=== PATIENT | male | born 1935 | race Caucasian/White ===

== ENCOUNTER → 2016-08-09 | Outpatient (CLI) | payer MEDICARE, BC ==
[~2016-08-09] MED LIST: ALDACTONE25 MG PO; AMARYL4 MG PO; APRESOLINE50 MG PO; ARICEPT10 MG PO; ASPIRIN LO-DOSE81 MG PO; ASPIRIN325 MG PO; BENICAR HCT 401 EAC1 PO; BENTYL10 MG PO; BYSTOLIC10 MG PO; BYSTOLIC20 MG PO; CARAFATE1 GM PO; CPAP INH; FLOMAX0.4 MG PO; FLONASE 50 MCG/16 GM NOSE; HYGROTON25 MG PO; IMDUR60 MG PO; LIDOCAINE15 GM TOP; LOSARTAN-HCTZ1 EAC1 PO; LOTENSIN20 MG PO; LYRICA 75MG CAP75 MG PO; NORVASC5 MG PO; PAXIL20 MG PO; PRAVACHOL80 MG PO; PROTONIX40 MG PO; TOPROL XL100 MG PO; TRADJENTA5 MG PO; VICTOZA 2-0.6 MG/0.1 SUB-Q; VITAMIN B-121000 MCG PO
== END | disposition disaster alternative care site (69) ==
LOC: LHSC 11:14
DX: K21.9 Gastro-esophageal reflux disease without esophagitis (principal); K63.5 Polyp of colon; R10.9 Unspecified abdominal pain; R19.4 Change in bowel habit; K20.9 Esophagitis, unspecified; K29.71 Gastritis, unspecified, with bleeding; K29.81 Duodenitis with bleeding

== ENCOUNTER 2016-11-13 13:52 | Observation (INO) | payer MEDICARE, BC ==
[~2016-11-13] VITALS: Ht 188 cm; Wt 95.0 kg
--- NOTE | ~2016-11-13 | ECHO ---
Transthoracic Echocardiography Report (TTE) Demographics Patient Name JOHN LALA Date of Study 11/15/2016 Patient Number [id number] Visit Number [id number] Date of 1935 Room Number G6230 Accession Number [id number] Gender Male Age 81 year(s) Referring Dk Srivastava Chemical Unit Operator Yahir Mart RVYfn, Physician BOYD Physician Interpreting [place] [employer] Equipment Worker Physician Supervising Ordering Physician French Cotter MD, MD/P Nurse Stress Manager Plant Conclusions Contractility Score Summary Normal Left Ventricular contractility was noted. Summary The estimated left ventricular ejection fraction is 60% with normal internal dimension and WM.Moderate to severe concentric left ventricular hypertroPHY. Mild mitral annular calcification. Mild mitral regurgitation by color Doppler. Procedure Type of Study TTE procedure:2D Echocardiogram, Echo with Contrast. Procedure Date Date: 11/15/2016 Start: 08:12 AM Study Location: Inpatient Portable Technical Quality: Good visualization Indications:CVA. Appropriate Use Criteria: 8 Patient Status: Routine Contrast Medium: Bubble Study. Rhythm: NSR HR: 65 bpm BP: 159/72 mmHg M-Mode/2D Measurements LV Diastolic Dimension: 4.37 cm LV Systolic Dimension: 2.62 cm LV Septum Diastolic: 1.74 cm LV PW Diastolic: 1.52 cm AO Root Dimension: 2.8 cm Cardiac Output: 10.24 l/min AV Cusp Separation: 2.3 cm RV Diastolic Dimension: 3.39 cm LA volume: 59 ml LVOT: 2.6 cm RV Base: 4.2 cm LVOT VTI: 29.7 cm RV Mid: 3.2 cm LV Stroke volume: 157.61 ml TAPSE: 3.05 cm TDI-S': 15.6 cm/s Doppler Measurements AV Peak Velocity: 1.67 m/s MV Peak E-Wave: 1.08 m/s AV Peak Gradient: 11.16 mmHg MV Peak A-Wave: 1.01 m/s AV Mean Gradient: 7 mmHg MV E/A Ratio: 1.07 LVOT Peak Velocity: 1.13 m/s MV P1/2t: 79 msec TR Gradient:21.16 mmHg PV Peak Velocity: 1.03 m/s Estimated RAP:5 mmHg PV Peak Gradient: 4.24 mmHg Estimated RVSP: 26 mmHg Estimated PASP: 26.16 mmHg E' Septal Velocity: 0.06 m/s A' Septal Velocity: 0.09 m/s E' Lateral Velocity: 0.07 m/s A' Lateral Velocity: 0.09 m/s Findings Left Ventricle Moderate to severe concentric left ventricular hypertrophy with normal internal dimension,EF and WM. Diastolic assessment reveals Grade II pseudonormal diastolic function . Right Ventricle Normal right ventricle structure and function. Left Atrium The left atrium is normal. There is no evidence of patent foramen ovale or atrial septal defect by color Doppler. Bubble study was done, there is no evidence for a PFO or ASD. Right Atrium Normal right atrial size. Mitral Valve Mild mitral annular calcification. Mild mitral regurgitation by color Doppler. Aortic Valve The aortic valve is mildly sclerotic. There is trivial aortic regurgitation by color Doppler. Tricuspid Valve Normal tricuspid valve structure and function. Trivial tricuspid regurgitation by color Doppler. Pulmonic Valve Normal pulmonic valve structure and function. Pericardial Effusion No evidence of pericardial effusion. Miscellaneous Visualized portions of the aortic root and ascending aorta appear normal in size. Pleural Effusion No evidence of pleural effusion. Contractility Score LV regional wall motion:(0-Non visualized 1-Normal 2-Hypokinesis 3-Akinesis 4-Dyskinesis 5-Aneurysm) Signature dtt: Ramona Contreras dtd: 11/15/16 0812 Physician Self Edit
--- NOTE | ~2016-11-13 | DS ---
PATIENT'S NAME: JOHN LALA [facility] AGE: 81 Y [address] ROOM: [facility] [place] [place], [place] [address] LOCATION: [facility] ADMIT DATE: 11/13/2016 Discharge Summary DISCHARGE DATE: 11/15/2016 FAMILY PHYSICIAN: Rohith Root MD ATTENDING PHYSICIAN: Deedee Braswell BRIEF HISTORY: This is an 81-year-old white male, who had presented to the emergency room with sudden onset of numbness of his right face, right arm, and right side of his head. It began while sitting at home on the table. He recently was treated for shingles with left forehead postherpetic neuralgia. He was evaluated in the emergency room and found to have what appeared to be a small stroke in the left thalamus, which was felt to be ischemic with minimal symptoms as essentially his symptoms had improved dramatically, and tPA was not offered. Dr. Deedee Braswell did admit the patient under stroke protocol. The patient improved dramatically. Essentially over the first few hours, all the patient's symptoms were gone with the exception of mild right temporoparietal numbness and tingling. No dysarthria. No upper extremity or lower extremity weakness. He was seen by teleradiology. His blood pressure was elevated, and his blood pressure was treated to toward normalization but not to normal. Over the next 24 hours or so, he was evaluated by Physiatry. The tele- radiologist recommended treating blood pressure as well as complete workup of any carotid disease. DISCHARGE MEDICATIONS: He was subsequently discharged to home on: 1. Pravastatin. 2. Pantoprazole. 3. Isordil. 4. Lyrica. 5. Flonase. 6. Glimepiride. 7. Aspirin 325 daily. His other medications were continued as well, and we tried to trend his LDL less than 70. He will continue on his: 1. Bystolic. 2. Vitamin B12. 3. Lidocaine cream for his postherpetic neuralgia. FOLLOWUP: He will follow up with us in 1 week's time or sooner if needed. ROHITH ROOT MD PATIENT'S NAME: JOHN LALA [facility] AGE: 81 Y [address] ROOM: [place] [address] LOCATION: [facility] ADMIT DATE: 11/13/2016 Discharge Summary DISCHARGE DATE: 11/15/2016 FAMILY PHYSICIAN: Rohith Root MD ATTENDING PHYSICIAN: Deedee Braswell/maximiliano /[id number] d: 12/08/16 0345 t: 12/28/16 1702, DISCHARGE SUMMARY
--- NOTE | ~2016-11-13 | ER ---
PATIENT'S NAME: JOHN LALA [facility] AGE: 81 Y [address] ROOM: [address] [place], [place] [address] LOCATION: [facility] ADMIT DATE: 11/13/2016 ER/Outpatient Report DISCHARGE DATE: FAMILY PHYSICIAN: Rohith Root MD ATTENDING PHYSICIAN: Deedee Braswell TIME SEEN: Approximately 1400 hours. HISTORY OF PRESENT ILLNESS: The patient is an 81-year-old male presents with sudden onset of numbness involving the right side of his head, face and right arm. Symptoms began around 11 to 11:30. The patient denied any headache, dizziness or weakness. ALLERGIES: NONE. HOME MEDICATIONS: See copied list which was reviewed. PAST MEDICAL HISTORY: Includes ewp-tqugven-dqkghzsex diabetes, hypertension, renal insufficiency, and BPH. SOCIAL HISTORY: He is a smoker back in the 60s. No alcohol use. REVIEW OF SYSTEMS: GENERAL: No recent febrile illness. He was treated for shingles about a month ago involving the left side of his face and forehead. HEAD AND EENT: No complaints of headache, visual changes or difficulty swallowing. RESPIRATORY: No cough or wheezing. He does use a CPAP at night. CARDIOVASCULAR: Takes treatment for hypertension. He has had no recent chest pain. No heart palpitations or irregularities. GASTROINTESTINAL: No abdominal pain. No weight loss. No change in bowel habits. GENITOURINARY: Does see Dr. Hoyt for his enlarged prostate. He has recently been put on Flomax. NEURO/PSYCH: He had sudden onset of numbness involving his right side of his head, face and right arm. He does state he has some mild gait or balance issues. OBJECTIVE FINDINGS: VITAL SIGNS: Reviewed. His blood pressure about 140/80. PATIENT'S NAME: JOHN LALA [facility] AGE: 81 Y [address] ROOM: [address] [place], [place] [address] LOCATION: [facility] ADMIT DATE: 11/13/2016 ER/Outpatient Report DISCHARGE DATE: FAMILY PHYSICIAN: Rohith Root MD ATTENDING PHYSICIAN: Deedee Braswell GENERAL APPEARANCE: He is white male. He is alert and oriented. HEAD: Normocephalic. EYES: PERRLA. No nystagmus. NOSE: Septum midline. MOUTH: Tongue was midline. Buccal membranes moist. NECK: No jugular venous distention. No bruits heard. LUNGS: Clear peripherally. HEART: Tones distant, but regular. ABDOMEN: Soft, nontender. EXTREMITIES: No pedal edema. No clubbing. NEURO: His stroke scale was 1. He had no facial droop. No visual field loss. Sensation to light touch especially on right side of his facial area was present. He also had some loss of sensation in his right arm. Otherwise strength appeared equal. His speech was clear. No other focal neurological signs were noted. DIAGNOSTIC DATA: Initial CT of his head with no acute changes, just normal ageing. CBC: White count was 6.8, his hemoglobin 13.2, his PTT was 26. ProTime 10.4. His INR was 0.99. Troponin was less than 0.040. CMS: Sodium was high at 146 as well as his chloride at 113. Calcium low at 8.3, his glucose was 104. He had an elevated BUN of 41 and creatinine 1.8. His MRI no contrast, Dr. Hodge reported a small stroke in the left thalamus. Ischemic in nature. PLAN: Initially, we discussed with Dr. Roman the possible use of tPA. However because of his very minimal symptoms, the tPA was not offered. The patient will be admitted by Dr. Braswell, who is on-call for Dr. Root. The patient did remain stable in the emergency room. LASHAE PRETTY FOR RUDY ROMAN DO SWJ/modl /[id number] ATTENDING ADDENDUM: I saw and evaluated the patient. I have discussed with the PA, agree with the PA's findings and plan and agree with the documented note above. Although the patient is within the window for tPa, the patient's symptoms are very mild. He has loss of sensation only on the right side of his face and arm. The risks of of tPa far outweigh the benefit at this time. Patient will be admitted for a workup of his left thalamic stroke. RUDY ROMAN DO d: 11/13/16 2334 t: 11/17/16 0923, OUTPATIENT REPORT
--- NOTE | ~2016-11-13 | CON ---
PATIENT'S NAME: JOHN LALA [facility] AGE: 81 Y [address] ROOM: [place] [address] LOCATION: [facility] ADMIT DATE: 11/13/2016 Consultation DISCHARGE DATE: FAMILY PHYSICIAN: Rohith Root MD ATTENDING PHYSICIAN: Deedee Braswell REFERRING PHYSICIAN: SARAH JAVIER MD A consult for Dr. Deedee Braswell. HISTORY OF PRESENT ILLNESS: This pleasant, 81-year-old gentleman is referred for rehab evaluation, admitted on 11/13/2016 with sudden onset of right hand forearm numbness and right face temporal area numbness. No headache. Denied any dizziness. No visual difficulty. No nausea. No vomiting. No shortness of breath. No chest pain. No palpitation. No cough. No sputum. No fever. No trauma. PAST MEDICAL HISTORY: He has history of diabetes type 2, well controlled; hypertension, also well controlled; and dyslipidemia. PHYSICAL EXAMINATION: GENERAL: Alert and oriented x3. VITAL SIGNS: He is, with the following vitals at the present time: Blood pressure 159/76, temperature 98.3, pulse 61, and respiration rate 16. He is 6 feet 2 inches tall and weighs 95 kg. NEUROLOGIC: He can see well. Cranial nerves 2 through 12 are within normal limits. Voice is clear and not wet. Can swallow without difficulty. No facial droop at the present time. Can move bilateral upper and lower extremities well. Muscle strength is about 4+ throughout. Deep tendon reflexes are present and equal throughout, 1+. He has good bowel and bladder control. MEDICATIONS: He is on the following medications: 1. Hydralazine. 2. Aspirin. 3. Bystolic. 4. Aldactone. 5. Hyzaar. 6. Norvasc. 7. Aricept. 8. Pravachol. 9. Paxil. 10. Imdur. PATIENT'S NAME: JOHN LALA [facility] AGE: 81 Y [address] ROOM: [place] [address] LOCATION: [facility] ADMIT DATE: 11/13/2016 Consultation DISCHARGE DATE: FAMILY PHYSICIAN: Rohith Root MD ATTENDING PHYSICIAN: Deedee Braswell 11. Bentyl. 12. Flomax. 13. Glucagon. 14. Glucose. 15. Dextrose. 16. Insulin NovoLog, mild scale. 17. Protonix. 18. Carafate. 19. Tylenol. 20. NaCl 0.9%. 21. Aspirin. 22. Apresoline. 23. Plavix. ASSESSMENT AND PLAN: He has been initiated on PT, OT, and speech, which I will continue. At the present time, he is doing well. I feel that he can go home. He should not drive and/or operate any mechanical device, for example, a health science writer, until he is reevaluated. If discharged, I will see him in my office in about 2 weeks from discharge. All the above was explained to his . She verbalized understanding and agreement, and so did the patient himself. MD EROS CAROLINA/maximiliano /[id number] d: 11/15/16 1520 t: 11/16/16 0739, CONSULTATION REPORT
--- NOTE | ~2016-11-13 | CON ---
PATIENT'S NAME: JOHN LALA [facility] AGE: 81 Y [address] ROOM: [address] [address] LOCATION: [facility] ADMIT DATE: 11/13/2016 Consultation DISCHARGE DATE: 11/15/2016 FAMILY PHYSICIAN: Rohith Root MD ATTENDING PHYSICIAN: Deedee Braswell DATE OF CONSULTATION: 11/14/2016 REFERRING PHYSICIAN: Dianne Will MD TIME: 8:40 a.m. HISTORY OF PRESENT ILLNESS: This patient is an 81-year-old male who presented with sudden onset of numbness involving the right side of his head, face, and right arm. He denies any weakness in the arm. He denied any vision changes, headache, or dizziness. The symptoms began around 11 to 11:30 when he was eating lunch. His family arrived and thought he should be taken in, so he was brought to [facility]. The numbness had begun to resolve by the time he reached the hospital. The patient's gait or balance was not affected. He states it just felt like his arm fell asleep, but also involved the right side of his head and face. ALLERGIES: NO KNOWN MEDICATION ALLERGIES. HOME MEDICATIONS: On the chart and reviewed by me. Of note, he is on 81 mg of aspirin. PAST MEDICAL HISTORY: 1. Aju-vpumafg-qilskmekt diabetes. 2. Hypertension. 3. Renal insufficiency. 4. Benign prostatic hypertrophy. SOCIAL HISTORY: He is a former smoker, but has quit several years ago. He does not use alcohol. No illicit drug use. FAMILY HISTORY: His parents of old age. There are no contributing factors in his family history. REVIEW OF SYSTEMS: All systems were reviewed and are negative except for those mentioned in the PATIENT'S NAME: JOHN LALA [facility] AGE: 81 Y [address] ROOM: [address] [address] LOCATION: [facility] ADMIT DATE: 11/13/2016 Consultation DISCHARGE DATE: 11/15/2016 FAMILY PHYSICIAN: Rohith Root MD ATTENDING PHYSICIAN: Deedee Braswell HPI. Of note, he was recently treated for shingles involving the left side of his face and forehead. PHYSICAL EXAMINATION: VITAL SIGNS: He is afebrile. His blood pressures have been running 140s to 150s systolic over 80s. His heart rate is in the 70s and is regular. His respirations are 16. GENERAL APPEARANCE: He appears his stated age. He participates in the exam and is in no acute distress. HEENT: Normocephalic and atraumatic. His eyes are PERRLA. No nystagmus noted. Extraocular movements intact. Mouth: Tongue midline. NECK: No JVD noted. No bruits auscultated. LUNGS: Clear to auscultation bilaterally. HEART: S1 and S2 without murmur, rub, or gallop. NEUROLOGICAL: Alert and oriented x4. His NIH Stroke Scale is 1 for sensation to the right side of the face. There is also some loss of sensation to the right arm. Gait is not examined. DIAGNOSTIC DATA: The patient did undergo an MRI in the emergency department. It showed dauzwdkz-ih-xabujh atrophy and senescent white matter disease that had progressed since his prior study. There is also a tiny acute nonhemorrhagic lacunar infarct in the posterior left thalamic pulvinar measuring about 4 mm in size. 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 ASSESSMENT AND PLAN: This patient was not a candidate for tPA due to his very minimal symptoms. The patient has been admitted for further stroke workup for Dr. Root. Ischemic cerebrovascular accident. This appears to be a lacune involving a small vessel. As far as thrombotics, we will exchange the 81 mg of aspirin for 325 mg of aspirin. The patient's lipid profile is within normal limits, so we will continue his home statin. For further investigation, we should look at the vessels of his head, so we will do an MRA head and neck. Also, we should get an echo with bubble study to evaluate any causes of stroke. We will hold his Hytrin today to allow permissive hypertension and evaluate tomorrow to see if we should restart it. The plan of care was discussed with the patient. Dr. Hollis and I developed the plan of care and examined the patient together. The time of consult was 35 minutes. If you have any further questions, please do not hesitate to consult us. PATIENT'S NAME: JOHN LALA [facility] AGE: 81 Y [address] ROOM: [address] [address] LOCATION: [facility] ADMIT DATE: 11/13/2016 Consultation DISCHARGE DATE: 11/15/2016 FAMILY PHYSICIAN: Rohith Root MD ATTENDING PHYSICIAN: Deedee Braswell JOSE LAWLER APRN FOR SAMUEL MCINTOSH MD PP/modl /[id number] d: 11/16/16 1128 t: 12/02/16 1025, CONSULTATION REPORT
[~2016-11-13 13:52] MED LIST changes: -ALDACTONE25 MG PO; -APRESOLINE50 MG PO; -ASPIRIN325 MG PO; -BENTYL10 MG PO; -BYSTOLIC20 MG PO; -CARAFATE1 GM PO; -FLOMAX0.4 MG PO; -FLONASE 50 MCG/16 GM NOSE; -IMDUR60 MG PO; -LIDOCAINE15 GM TOP; -LYRICA 75MG CAP75 MG PO; -PROTONIX40 MG PO
[2016-11-13 14:15] LABS: BASOPHIL % 0.6 %; EOSINOPHIL # 0.1 K/uL (0.0-0.5); EOSINOPHIL % 1.5 %; HEMATOCRIT 39.3 % (33.0-50.0); HEMOGLOBIN 13.2 g/dL (11.0-16.0); IMMATURE GRANULOCYTE % 0.4 %; LYMPHOCYTE # 1.1 K/uL (0.8-4.0); LYMPHOCYTE % 16.5 %; MCH 31.5 pg (27.0-34.0); MCHC 33.6 gm/dL (32.0-36.5); MCV 93.8 fl (83.0-98.0); MONOCYTE # 0.7 K/uL (0.0-1.0); MONOCYTE % 10.2 %; MPV 10.5 fl (9.4-12.4); NEUTROPHIL # (ANC) 4.8 K/uL (1.4-9.0); NEUTROPHIL % 70.8 %; NRBC % 0 /100WBC (0-0.00); PLATELET COUNT 187 K/uL (150-450); RBC 4.19 M/uL (3.50-5.50); RDW-CV 14.1 % (11.9-14.6); WBC 6.8 K/uL (4.0-11.0)
[2016-11-13 14:23] LABS: INR - (THERAPEUTIC) 0.99 (0.92-1.07); PROTIME 10.4 SECONDS (9.8-11.4); PTT 26 SECONDS (25-32)
[2016-11-13 14:35] LABS: ALBUMIN 3.6 gm/dL (3.5-5.0); ANION GAP 13.9 (10.0-19.0); CALCIUM 8.3 mg/dL (8.5-10.5); CREATININE 1.8 mg/dL (0.6-1.3); POTASSIUM 4.9 mMol/L (3.7-5.1); TOTAL BILIRUBIN 0.7 mg/dL (0.0-1.5); TOTAL PROTEIN 6.6 g/dL (6.0-8.4)
[2016-11-13] MEDS ORDERED: PAXIL20 MG PO (23:39)
[2016-11-13] MEDS ORDERED: IMDUR60 MG PO (23:40)
[2016-11-13] MEDS ORDERED: PROTONIX40 MG PO (23:40)
[2016-11-13] MEDS ORDERED: APRESOLINE50 MG PO (23:41)
[2016-11-13] MEDS ORDERED: CARAFATE1 GM PO (23:42)
[2016-11-13] MEDS ORDERED: BENTYL10 MG PO (23:43)
[2016-11-13] MEDS ORDERED: ALDACTONE25 MG PO (23:43)
[2016-11-13] MEDS ORDERED: FLOMAX0.4 MG PO (23:44)
[2016-11-13] MEDS ORDERED: BYSTOLIC20 MG PO (23:44)
[2016-11-14] MEDS ORDERED: VITAMIN B-121000 MCG PO (09:20)
[2016-11-14] MEDS ORDERED: FLONASE 50 MCG/16 GM NOSE (09:24)
[2016-11-14] MEDS ORDERED: LIDOCAINE15 GM TOP (09:24)
[2016-11-14] MEDS ORDERED: AMARYL4 MG PO (09:24)
[2016-11-14] MEDS ORDERED: LYRICA 75MG CAP75 MG PO (09:24)
[2016-11-14 11:09] LABS: CREATININE 1.4 mg/dL (0.6-1.3)
[2016-11-15] MEDS ORDERED: ASPIRIN325 MG PO (16:55)
== END 2016-11-15 17:39 | disposition disaster alternative care site (69) ==
LOC: GMED 13:52 → GNTU 16:46
PROVIDERS: Nurse Practitioner Family; Physician Assistant Medical; ADMIT Family Medicine
DX: I63.9 Cerebral infarction, unspecified (principal); I65.23 Occlusion and stenosis of bilateral carotid arteries; I25.10 Atherosclerotic heart disease of native coronary artery without angina pectoris; E78.00 Pure hypercholesterolemia, unspecified; E11.9 Type 2 diabetes mellitus without complications; I10 Essential (primary) hypertension; N40.0 Benign prostatic hyperplasia without lower urinary tract symptoms; N28.9 Disorder of kidney and ureter, unspecified; Z87.891 Personal history of nicotine dependence; Z79.899 Other long term (current) drug therapy
CPT/HCPCS: C8929; G0378; G8978; G8979; G8980; G8981; G8982; G8983; G9168; G9169; G9170; J7030

== ENCOUNTER 2017-02-01 10:11 | Emergency (ER) | payer MEDICARE, BC ==
--- NOTE | ~2017-02-01 | ER ---
PATIENT'S NAME: JOHN LALA [facility] AGE: 81 Y [address] ROOM: [place] [address] LOCATION: ED ADMIT DATE: 02/01/2017 ER/Outpatient Report DISCHARGE DATE: 02/01/2017 FAMILY PHYSICIAN: Rohith Root MD ATTENDING PHYSICIAN: Mitzy Holliday Time of Arrival: 1011 hours. Time of Evaluation: 1015 hours. IDENTIFICATION: An 81-year-old male. CHIEF COMPLAINT: Numb sensation in his mouth and lips. HISTORY OF PRESENT ILLNESS: Approximately 30 minutes prior to arrival, the patient had sensation of feeling like he had tear in his mouth, and this sensation progressed to numb feeling of his tongue and the rough of his mouth. He has a dull headache on the right side of his head. He has some chronic numbness on the right side of his head since he had a small stroke in November. On December 10, he had an MRI of his brain, showing a tiny punctate nonhemorrhagic acute lacunar infarct in the left thalamus. He has no additional symptoms today. ALLERGIES: NO KNOWN DRUG ALLERGIES. CURRENT MEDICATIONS: 1. Losartan 100/25 q.a.m. 2. Isosorbide mononitrate 60 mg 1-1/2 tabs in the morning. 3. Clopidogrel 75 mg daily. 4. Hydralazine 50 mg 1-1/2 tabs 3 times a day. 5. Spironolactone 25 mg b.i.d. 6. Glimepiride 4 mg at h.s. 7. Donepezil 10 mg daily. 8. Paroxetine 20 mg daily. 9. Pravastatin 80 mg daily. 10. Bystolic 20 mg daily. 11. Victoza 9 mg at h.s. 12. Tamsulosin 0.4 mg at bedtime. 13. Vitamin B12 1000 mcg daily. 14. Patti 81 mg aspirin daily. MEDICAL PROBLEMS: Tiny punctate nonhemorrhagic acute lacunar infarct in the left thalamus on PATIENT'S NAME: JOHN LALA [facility] AGE: 81 Y [address] ROOM: [place] [address] LOCATION: ED ADMIT DATE: 02/01/2017 ER/Outpatient Report DISCHARGE DATE: 02/01/2017 FAMILY PHYSICIAN: Rohith Root MD ATTENDING PHYSICIAN: Mitzy Holliday November 13, 2016; diabetes mellitus type 2; sensorineural hearing loss, status post bilateral hearing aids; hypertension; BPH; chronic kidney disease; vitamin B12 deficiency; obstructive sleep apnea; gastroesophageal reflux disease. PAST SURGICAL HISTORY: Cardiac stent. SOCIAL HISTORY: The patient lives in [place], [place]. Tobacco use, denies. Alcohol use, denies. Drug use, denies. REVIEW OF SYSTEMS: All systems reviewed and negative other than what is noted in the HPI. PHYSICAL EXAMINATION: VITAL SIGNS: Height 62 inches, weight 91.7 kg, blood pressure 177/83, pulse 70, respirations 16, temperature 96.4, and saturations 94% on room air. GENERAL: An 81-year-old male, in no acute distress. HEENT: Head: Normocephalic, atraumatic. Ears: TMs translucent both ears. Nose: Mucosa pink, no lesions. Mouth: No lesions. Pharynx benign. NECK: Supple. No lymphadenopathy. LUNGS: Clear to auscultation. HEART: Regular rate and rhythm. ABDOMEN: Soft, nondistended, nontender. SKIN: [place], warm, and dry. No lesions or rashes noted. NEURO: No focal deficit. NIH stroke scale score is one and a copy is included in the chart. LABORATORY DATA AND X-RAYS: Head CT without contrast: No acute findings, pending Radiology over-read. EKG: Normal sinus rhythm at 67 beats per minute. No acute ST elevation or depression. Q-waves are noted in leads III and F. No change when compared to previous EKG on November 13, 2016. Sodium 139; potassium 4.9; chloride 110; CO2 of 22; BUN 39; creatinine 1.8; creatinine was 1.4 on November 14; blood sugar 124. Liver enzymes normal. Troponin I less than 0.040. Hemoglobin 15.3, hematocrit 44.6, platelets 162, white count 5.0 with a normal differential. INR 1.01. MRI of the brain without contrast, no acute findings. Stable benign arachnoid cyst anterior of the left temporal horn. I did review studies from November. The patient had an MRA of his neck showing bilateral 50% to 79% smooth stenosis of both carotid bulbs and had an echocardiogram showing normal left ventricular contractility, EF of 60%. PATIENT'S NAME: JOHN LALA [facility] AGE: 81 Y [address] ROOM: [place] [address] LOCATION: [facility] ADMIT DATE: 02/01/2017 ER/Outpatient Report DISCHARGE DATE: 02/01/2017 FAMILY PHYSICIAN: Rohith Root MD ATTENDING PHYSICIAN: Mitzy Holliday IMPRESSION AND PLAN: 1. Perioral numbness. NIH stroke scale score is 1. I discussed this case with Dr. Johnson as well as Dr. Root. With the normal MRI, the patient will be discharged home. Continue his current medications, which include Plavix and aspirin, rest, and follow up with Dr. Root. After his MRI he had a headache and some neck pain from how he was lying, so we did give him Tylenol here. He will take Tylenol as needed for pain. Follow up with Dr. Root at 1:30 on . 2. Chronic kidney disease. 3. Acute kidney injury. 4. 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 5. Diabetes mellitus type 2. 6. Hypertension. The patient and his understand and agree, and all questions have been answered. MITZY HOLLIDAY MD CAR/modl /[id number] d: 02/01/172220 t: 02/09/172039, OUTPATIENT REPORT
[~2017-02-01 10:11] MED LIST changes: +ALDACTONE25 MG PO; +APRESOLINE50 MG PO; +ASPIRIN325 MG PO; +BENTYL10 MG PO; +BYSTOLIC20 MG PO; +CARAFATE1 GM PO; +FLOMAX0.4 MG PO; +FLONASE 50 MCG/16 GM NOSE; +IMDUR60 MG PO; +LIDOCAINE15 GM TOP; +LYRICA 75MG CAP75 MG PO; +PROTONIX40 MG PO
[2017-02-01 10:34] LABS: BASOPHIL % 0.8 %; EOSINOPHIL # 0.1 K/uL (0.0-0.5); HEMATOCRIT 44.6 % (33.0-50.0); HEMOGLOBIN 15.3 g/dL (11.0-16.0); IMMATURE GRANULOCYTE % 0.2 %; LYMPHOCYTE # 0.8 K/uL (0.8-4.0); LYMPHOCYTE % 15.7 %; MCH 31.7 pg (27.0-34.0); MCHC 34.3 gm/dL (32.0-36.5); MCV 92.5 fl (83.0-98.0); MONOCYTE # 0.3 K/uL (0.0-1.0); MONOCYTE % 6.8 %; MPV 10.5 fl (9.4-12.4); NEUTROPHIL # (ANC) 3.8 K/uL (1.4-9.0); NEUTROPHIL % 75.5 %; NRBC % 0 /100WBC (0-0.00); PLATELET COUNT 162 K/uL (150-450); RBC 4.82 M/uL (3.50-5.50); RDW-CV 12.4 % (11.9-14.6)
[2017-02-01 10:40] LABS: INR - (THERAPEUTIC) 1.01 (0.92-1.07); PROTIME 10.6 SECONDS (9.8-11.4); PTT 28 SECONDS (25-32)
[2017-02-01 10:49] LABS: ALBUMIN 3.9 gm/dL (3.5-5.0); ANION GAP 11.9 (10.0-19.0); CALCIUM 8.9 mg/dL (8.5-10.5); CREATININE 1.8 mg/dL (0.6-1.3); POTASSIUM 4.9 mMol/L (3.7-5.1); TOTAL PROTEIN 7.2 g/dL (6.0-8.4)
[2017-02-01 10:50] LABS: TOTAL BILIRUBIN 0.9 mg/dL (0.0-1.5)
== END 2017-02-01 13:06 | disposition disaster alternative care site (69) ==
LOC: GMED 10:11
PROVIDERS: Family Medicine
DX: I65.23 Occlusion and stenosis of bilateral carotid arteries (principal); R20.0 Anesthesia of skin; R51 Headache; M54.2 Cervicalgia; R29.701 NIHSS score 1; E11.22 Type 2 diabetes mellitus with diabetic chronic kidney disease; I12.9 Hypertensive chronic kidney disease with stage 1 through stage 4 chronic kidney disease, or unspecified chronic kidney disease; N18.9 Chronic kidney disease, unspecified; N17.9 Acute kidney failure, unspecified; K21.9 Gastro-esophageal reflux disease without esophagitis; N40.0 Benign prostatic hyperplasia without lower urinary tract symptoms; E53.8 Deficiency of other specified B group vitamins; G47.33 Obstructive sleep apnea (adult) (pediatric); Z79.899 Other long term (current) drug therapy; Z95.818 Presence of other cardiac implants and grafts; Z79.4 Long term (current) use of insulin

== ENCOUNTER → 2017-02-15 | Outpatient (CLI) | payer MEDICARE, BC | END | disposition disaster alternative care site (69) | LOC: GRAD 09:10 | DX: R31.9 Hematuria, unspecified (principal); N40.0 Benign prostatic hyperplasia without lower urinary tract symptoms; Q61.02 Congenital multiple renal cysts ==